=== PATIENT | female | born 1980 | race Caucasian/White ===

== ENCOUNTER 2022-06-20 07:17 | Emergency (ER) | payer OTHER, SELFPAY ==
--- NOTE | ~2022-06-20 | CT_ITS ---
EXAMINATION: CT abdomen pelvis wo con DATE: 06/20/2022 08:37 INDICATION: Bilateral flank pain. Hematuria. TECHNIQUE: Computed tomography (CT) of the abdomen and pelvis was performed without intravenous contr ast. Automated exposure control and iterative reconstruction technique were employed. The dose-length product was 274.63 mGy-cm. COMPARISON: None. FINDINGS: The visualized portions of the lung bases are clear without pneumonia or pleural effusion. The heart size is normal. No pericardial effusion. The liver, spleen, gallbladder, pancreas, adrenal glands, and kidneys are normal. There is no urolithiasis. There is diverticulosis of the colon withou t evidence of diverticulitis. The appendix is normal. There are no pathologically enlarged lymph node s. There is no free intraperitoneal fluid. There is moderate degenerative disc disease at L4-L5. IMPRESSION: 1. No etiology for the patient's symptoms. No urolithiasis. Reviewed, dictated and finalized at location B.
[2022-06-20 07:20] VITALS: BP 126/78; PULSE 92; RESP 18; TEMP 36.5; O2SAT 100
[2022-06-20 08:02] LABS: Basophils Percent Auto 0.6 % (0.2-1.2); Eosinophils Absolute Auto 0.4 K/mm3 (0-0.3); Eosinophils Percent Auto 5.3 % (0-4.4); Hematocrit 42.6 % (37.0-47.0); Hemoglobin 14.6 g/dL (12.0-15.0); Immature Granulocyte Absolute 0.02 K/mm3 (0.00-0.031); Immature Granulocyte Percent A 0.3 % (0-0.5); Lymphocytes Absolute Auto 1.86 K/mm3 (0.9-3.2); Lymphocytes Percent Auto 26.1 % (18.3-44.2); Mean Corpuscular HGB Conc 34.3 g/dl (32-36); Mean Corpuscular Hemoglobin 32.4 pg (26-34); Mean Corpuscular Volume 94.5 fl (80-100); Mean Platelet Volume 11.8 fl (7.4-10.4); Monocytes Absolute Auto 0.5 K/mm3 (0.1-0.6); Monocytes Percent Auto 6.7 % (2.6-8.5); Neutrophils Absolute Auto 4.4 K/mm3 (1.3-6.7); Platelet Count Result 150 k/mm3 (150-375); Red Blood Count 4.51 M/mm3 (4.2-5.4); Red Cell Distribution Width 12.3 % (11.5-14.5); White Blood Count 7.1 K/mm3 (4.5-10.0)
[2022-06-20 08:03] LABS: Appearance Urine Clear (Clear); Bilirubin Urine Negative (Negative); Blood Urine Trace-intact (Negative); Color Urine Yellow (Yellow); Glucose Urine UA Negative (Negative); Ketones Urine Negative (Negative); Leukocyte Esterase Ur Negative LEU/UL (Negative); Nitrate Urine Positive (Negative); Protein Urine Negative (Negative); Specific Grav Ur >= 1.030 (1.001-1.035); Urobilinogen Urine 0.2 mg/dL (<2.0); pH Urine 5.5 (5.0-9.0)
[2022-06-20 08:15] LABS: Bacteria Urine 1+ /hpf; Mucus Urine Rare /lpf; RBC Urine 0-2 /hpf (0-2); Squamous Epithelial Cell Urine Moderate /hpf (Few); WBC Urine 0-3 /hpf
[2022-06-20 08:16] LABS: Alanine Aminotransferase 23 U/L (6-35); Albumin Level 4.4 g/dL (3.5-5.1); Alkaline Phosphatase 83 U/L (38-126); Anion Gap 9 mmol/L (8-16); Aspartate Amino Transferase 22 U/L (14-36); Bilirubin,Total 0.5 mg/dL (0.2-1.3); Blood Urea Nitrogen 18 mg/dL (7-17); Calcium 8.8 mg/dL (8.4-10.2); Carbon Dioxide 23 mmol/L (22-30); Chloride 104 mmol/L (98-107); Estimated CRCL calculation 86 ml/min; Estimated Glomerular Filt Rate > 60; Glucose 92 mg/dL (65-110); Potassium 3.9 mmol/L (3.4-5.0); Sodium 136 mmol/L (137-145)
[2022-06-20 08:17] LABS: Add Urine Microscopic? YES
--- NOTE | 2022-06-20 08:27 | ED.GENADULT ---
HPI - General Adult General Chief complaint: Urogenital-Female Stated complaint: bilateral flank pain Time Seen by Provider: 06/20/22 08:01 History of Present Illness HPI narrative: 41-year-old female presents for evaluation of bilateral CVA tenderness and dysuria. Pain is nonradiating and constant. She think she may have passed a kidney stone yesterday but is unsure. Related Data Allergies Allergy/AdvReac Type Severity Reaction Status Date / Time No Known Allergies Allergy Verified 06/20/22 07:44 Review of Systems Review of Systems: CONSTITUTIONAL: Denies fever, chills, or sweats. EYES: Denies visual changes, redness, or discharge. ENT: Denies rhinorrhea, congestion, sore throat, or otalgia. CARDIOVASCULAR: Denies chest pain, palpitations, or edema. RESPIRATORY: Denies cough or dyspnea. GASTROINTESTINAL: Denies abdominal pain, nausea, vomiting, or diarrhea. GENITOURINARY: Denies dysuria or hematuria. SKIN: Denies rash or itching. MUSCULOSKELETAL: Denies back pain, joint pain, or myalgia. NEUROLOGIC: Denies headache, numbness, or weakness. PSYCHIATRIC: Denies anxiety or depression. Exam Narrative: GENERAL: Well-appearing, well-nourished, and in no acute distress. HEAD: Normocephalic, atraumatic. EYES: PERRLA and EOMI. ENT: Nares clear, no rhinorrhea or epistaxis. Mucous membranes moist. NECK: Supple. CHEST: Clear to auscultation. No respiratory distress. HEART: Regular rate and rhythm. No murmur heard. Normal peripheral pulses. ABDOMEN: Soft, nontender, nondistended, normal active bowel sounds. EXTREMITIES: Normal range of motion. No edema. SKIN: Warm, dry, no rash. NEURO: No focal deficits. Alert and oriented x3. PSYCH: Normal mood and affect. Course Vital Signs Vital signs: Vital Signs Temperature 97.7 F 06/20/22 07:20 Pulse Rate 92 06/20/22 07:20 Respiratory Rate 18 06/20/22 07:20 Blood Pressure 126/78 06/20/22 07:20 Pulse Oximetry 100 06/20/22 07:20 Oxygen Delivery Room Air 06/20/22 07:20 Temperature 97.7 F 06/20/22 07:20 Pulse Rate 92 06/20/22 07:20 Respiratory Rate 18 10/06/22 07:20 Blood Pressure 126/78 06/20/22 07:20 Pulse Oximetry 100 06/20/22 07:20 Oxygen Delivery Room Air 06/20/22 07:20 Medical Decision Making MDM Narrative Medical decision making narrative: Work-up is essentially unremarkable. Pain is well controlled and patient is agreeable to discharge home. She requests a work note. Vital Signs Vital Signs: Vital Signs Temperature 97.7 F 06/20/22 07:20 Pulse Rate 92 06/20/22 07:20 Respiratory Rate 18 06/20/22 07:20 Blood Pressure 126/78 06/20/22 07:20 Pulse Oximetry 100 06/20/22 07:20 Oxygen Delivery Room Air 06/20/22 07:20 Temperature 97.7 F 06/20/22 07:20 Pulse Rate 92 06/20/22 07:20 Respiratory Rate 18 06/20/22 07:20 Blood Pressure 126/78 06/20/22 07:20 Pulse Oximetry 100 06/20/22 07:20 Oxygen Delivery Room Air 06/20/22 07:20 Lab Data Result diagrams: 06/20/22 07:53 06/20/22 07:53 Labs: Lab Results 06/20/22 06/20/22 06/20/22 Range/Units 07:47 07:53 07:53 WBC 7.1 (4.5-10.0) K/mm3 RBC 4.51 (4.2-5.4) M/mm3 Hgb 14.6 (12.0-15.0) g/dL Hct 42.6 (37.0-47.0) % MCV 94.5 (80-100) fl MCH 32.4 (26-34) pg MCHC 34.3 (32-36) g/dl RDW 12.3 (11.5-14.5) % Plt Count 150 (150-375) k/mm3 MPV 11.8 H (7.4-10.4) fl Immature Gran % (Auto) 0.3 (0-0.5) % Neut % (Auto) 61.0 (45.5-73.1) % Lymph % (Auto) 26.1 (18.3-44.2) % [place] % (Auto) 6.7 (2.6-8.5) % Eos % (Auto) 5.3 H (0-4.4) % Baso % (Auto) 0.6 (0.2-1.2) % Lymph # (Auto) 1.86 (0.9-3.2) K/mm3 [place] # (Auto) 0.5 (0.1-0.6) K/mm3 Eos # (Auto) 0.4 H (0-0.3) K/mm3 Baso # (Auto) 0.0 (0.0-0.1) K/mm3 Abs Immat Gran (auto) 0.02 (0.00-0.031) K/mm3 Absolute Neuts (auto) 4.4 (1.3-6.7) K/mm3 Absolute Nucleated RBC 0.0 (0.
[2022-06-20] MEDS: LACTATED RINGERS 1,000 ML 999 ML IV CONT (09:25)
[2022-06-20] MEDS: KETOROLAC 15 MG/ML VIAL (*BKC) IV PUSH (09:25)
[2022-06-20 09:46] VITALS: BP 126/82; PULSE 87; RESP 14; O2SAT 100
[2022-06-20] MEDS: ONDANSETRON INJ 4 MG/2 ML VIAL IV PUSH (09:46)
== END 2022-06-20 10:24 | disposition home or self-care (01) ==
PROVIDERS: Emergency Provider Emergency Medicine
DX: R10.9 Unspecified abdominal pain (principal)
CPT/HCPCS: 36415; 74176; 80053; 81001; 81025; 85025; 96361; 96374; 96375; 99284; J1885; J2405; J7120

== ENCOUNTER 2022-09-12 10:41 | Emergency (ER) | payer OTHER, SELFPAY ==
--- NOTE | ~2022-09-12 | CT_ITS ---
EXAMINATION: CT abdomen pelvis w con DATE: 09/12/2022 15:36 INDICATION: Left lower quadrant abdominal pain. Left lower back pain. TECHNIQUE: Computed tomography (CT) of the abdomen and pelvis was performed with 100 mL Omnipaque 350 intravenous contrast. Automated exposure control and iterative reconstruction technique were employe d. The dose-length product was 652.41 mGy-cm. COMPARISON: CT abdomen and pelvis 06/20/2022 FINDINGS: The visualized portions of the lung bases demonstrate minimal atelectasis. No pleural effus ion. The heart size is normal. No pericardial effusion. There are cysts in the liver measuring up to 11 mm. The gallbladder, spleen, pancreas, adrenal glands are normal. There is cortical thinning of th e kidneys. There are cysts in the kidneys measuring up to 10 mm in the right. There are scattered div erticula in the colon. There is wall thickening of sigmoid colon. The appendix is normal. There is ph ysiologic fluid in the pelvis. There is an umbilical hernia containing fat. There are no pathological ly enlarged lymph nodes. There is moderate lumbar spondylosis. IMPRESSION: 1. Wall thickening of the sigmoid colon, which may be acute colitis or chronic diverticulitis. 2. Umbilical hernia containing fat. Reviewed, dictated and finalized at location A. ING PROGRAM CHAIR
[2022-09-12 11:03] VITALS: BP 126/75; PULSE 80; RESP 14; TEMP 36.7; O2SAT 99
[2022-09-12 11:38] LABS: Add Urine Microscopic? YES; Appearance Urine Clear (Clear); Bilirubin Urine Negative (Negative); Blood Urine Negative (Negative); Glucose Urine UA Negative (Negative); Ketones Urine Negative (Negative); Leukocyte Esterase Ur Trace LEU/UL (Negative); Nitrate Urine Negative (Negative); Protein Urine Negative (Negative); Specific Grav Ur <= 1.005 (1.001-1.035); Urobilinogen Urine 0.2 mg/dL (<2.0); pH Urine 6.5 (5.0-9.0)
[2022-09-12 11:41] LABS: Color Urine Light Yellow (Yellow)
[2022-09-12 11:47] LABS: Bacteria Urine Trace /hpf; Mucus Urine Rare /lpf; RBC Urine 0-2 /hpf (0-2); Squamous Epithelial Cell Urine Moderate /hpf (Few); WBC Urine 0-3 /hpf
[2022-09-12 12:43] LABS: Basophils Absolute Auto 0.1 K/mm3 (0.0-0.1); Basophils Percent Auto 0.7 % (0.2-1.2); Eosinophils Absolute Auto 0.2 K/mm3 (0-0.3); Eosinophils Percent Auto 2.2 % (0-4.4); Hematocrit 42.9 % (37.0-47.0); Hemoglobin 14.6 g/dL (12.0-15.0); Immature Granulocyte Absolute 0.03 K/mm3 (0.00-0.031); Immature Granulocyte Percent A 0.4 % (0-0.5); Lymphocytes Absolute Auto 2.01 K/mm3 (0.9-3.2); Lymphocytes Percent Auto 26.3 % (18.3-44.2); Mean Corpuscular Hemoglobin 31.6 pg (26-34); Mean Corpuscular Volume 92.9 fl (80-100); Mean Platelet Volume 11.7 fl (7.4-10.4); Monocytes Absolute Auto 0.5 K/mm3 (0.1-0.6); Monocytes Percent Auto 6.8 % (2.6-8.5); Neutrophils Absolute Auto 4.9 K/mm3 (1.3-6.7); Neutrophils Percent Auto 63.6 % (45.5-73.1); Platelet Count Result 166 k/mm3 (150-375); Red Blood Count 4.62 M/mm3 (4.2-5.4); Red Cell Distribution Width 12.3 % (11.5-14.5); White Blood Count 7.6 K/mm3 (4.5-10.0)
[2022-09-12 12:52] LABS: Alanine Aminotransferase 20 U/L (6-35); Albumin Level 4.5 g/dL (3.5-5.1); Alkaline Phosphatase 78 U/L (38-126); Anion Gap 6 mmol/L (8-16); Aspartate Amino Transferase 23 U/L (14-36); Bilirubin,Total 0.4 mg/dL (0.2-1.3); Blood Urea Nitrogen 14 mg/dL (7-17); Calcium 9.1 mg/dL (8.4-10.2); Carbon Dioxide 27 mmol/L (22-30); Chloride 101 mmol/L (98-107); Estimated CRCL calculation 85 ml/min; Estimated Glomerular Filt Rate > 60; Glucose 95 mg/dL (65-110); Lipase 38 U/L (23-300); Potassium 4.4 mmol/L (3.4-5.0); Sodium 134 mmol/L (137-145)
[2022-09-12 12:53] LABS: Pregnancy On Board Control Positive; Urine Pregnancy Test Negative
[2022-09-12 14:07] VITALS: BP 118/83; PULSE 68; RESP 18; TEMP 36.6; O2SAT 99
--- NOTE | 2022-09-12 14:38 | ED.GENADULT ---
HPI - General Adult General Chief complaint: Urogenital-Female <Catalina Stafford PA-C - Last Filed: 09/12/22 17:01> Stated complaint: PERSISTENT UTI S/SX <CORINE Reyes Last Filed: 09/12/22 17:01> Time Seen by Provider: 09/12/22 13:55 <CORINE Reyes Last Filed: 09/12/22 17:01> Source: patient and old records reviewed <CORINE Reyes Last Filed: 09/12/22 17:01> Mode of arrival: ambulatory <CORINE Reyes Last Filed: 09/12/22 17:01> Limitations: no limitations <CORINE Reyes Last Filed: 09/12/22 17:01> History of Present Illness HPI narrative: Patient is a 42-year-old female who presents to the ED with report of lower abdominal pain. Patient reports she developed dysuria 2 days ago. She was started on Bactrim at that time by her primary care doctor for suspected UTI. She has been taking this as prescribed. This morning, she developed pain in her left lower abdomen, radiating around to her left lower back, which prompted her presentation. She notes a history of kidney stones, pyelonephritis, diverticulitis. She has had some nausea, but denies vomiting. Denies fever. Denies hematuria. Denies diarrhea, constipation, rectal bleeding <CORINE Reyes Last Filed: 09/12/22 17:01> Related Data Allergies/adverse reactions: Allergies Allergy/AdvReac Type Severity Reaction Status Date / Time No Known Allergies Allergy Verified 09/12/22 13:57 <CORINE Reyes Last Filed: 09/12/22 17:01> Review of Systems Review of Systems: CONSTITUTIONAL: Denies fever, chills, or sweats. EYES: Denies visual changes. ENT: Denies rhinorrhea, congestion, sore throat. CARDIOVASCULAR: Denies chest pain. RESPIRATORY: Denies dyspnea. GASTROINTESTINAL: Reports left lower abd pain, nausea. Denies constipation, rectal bleeding, vomiting, or diarrhea. GENITOURINARY: Reports dysuria. Denies hematuria. SKIN: Denies rash or itching. MUSCULOSKELETAL: Reports left lower back pain. NEUROLOGIC: Denies headache, numbness, or weakness. <Catalina Stafford PA-C - Last Filed: 09/12/22 17:01> All systems reviewed & are unremarkable except as noted in HPI and below <Catalina Stafford PA-C - Last Filed: 09/12/22 17:01> [facility] Past Medical History Medical History: Medical History (Updated 09/13/22 @ 00:00 by Boubacar Renae) Depression History of diverticulitis History of kidney stones <Catalina Stafford PA-C - Last Filed: 09/12/22 17:01> Surgical History Surgical History: Surgical History (Updated 09/12/22 @ 14:46 by Catalina Stafford PA-C) No pertinent past surgical history <Catalina Stafford PA-C - Last Filed: 09/12/22 17:01> Social History Social History: Social History (Updated 09/12/22 @ 14:46 by Catalina Stafford PA-C) Smoking status: Never smoker <Catalina Stafford PA-C - Last Filed: 09/12/22 17:01> Exam Narrative: GENERAL: Well appearing, obese, non-toxic, in no acute distress. HEAD: Normocephalic, atraumatic. NECK: Supple. No adenopathy, no masses. RESPIRATORY: Airway patent, respirations nonlabored. Clear to auscultation bilaterally, no rales, rhonchi, wheezing. CARDIOVASCULAR: Regular rate and rhythm without murmurs, rubs, or gallops. Peripheral pulses 2+ and equal bilaterally. ABDOMINAL: Soft, mild tenderness to palpation in left lower quadrant, suprapubic region, left upper abdomen, nondistended, no hepatosplenomegaly. Normoactive BS. Positive CVA tenderness on left. MUSCULOSKELETAL: Moves all extremities. Strength/ROM intact without gross deformities. SKIN: Warm, dry, normal color. No rashes. NEURO: A&O X3. Speech clear. Cranial nerves II-XII grossly intact. Steady gait. No ataxic movements. PSYCHIATRIC: Appropriate mood and affect. Normal interaction. <Catalina Stafford PA-C - Last Filed: 09/12/22 17:01> Course CABLE DISPATCHER/PAIGE Physician Supervis
[2022-09-12] MEDS: MORPHINE SULFATE (*CRX) 4 MG/ML INJ IV PUSH (16:55)
[2022-09-12] MEDS: ONDANSETRON INJ 4 MG/2 ML VIAL IV PUSH (16:56)
== END 2022-09-12 17:04 | disposition home or self-care (01) ==
PROVIDERS: Emergency Provider Emergency Medicine; PCP Internal Medicine
DX: K57.32 Diverticulitis of large intestine without perforation or abscess without bleeding (principal); R82.998 Other abnormal findings in urine; Z87.442 Personal history of urinary calculi; K42.9 Umbilical hernia without obstruction or gangrene
CPT/HCPCS: 36415; 74177; 80053; 81001; 81025; 83690; 85025; 87086; 87088; 96365; 96375; 99284; J0131; J2270; J2405; Q9967